=== PATIENT | male | born 1995 | race Caucasian/White ===

== ENCOUNTER 2023-08-18 17:35 | Emergency (ER) | payer SELFPAY ==
--- NOTE | 2023-08-18 17:57 | ER ---
Nurse's Notes [facility] Name: Joseph Bass Age: 28 yrs Sex: Male : 1995 Arrival Date: 08/18/2023 Time: 17:35 Bed 17 Private MD: Diagnosis: Pilonidal cyst with abscess Presentation: 08/17 17:52 Chief complaint: Patient states: Swelling/pain to buttocks for 2 weeks. No drainage or ll1 fever. Coronavirus screen: Client denies travel out of the [place] in the last 14 days. At this time, the client does not indicate any symptoms associated with coronavirus-19. Ebola Screen: Patient denies travel to an Ebola-affected area in the 21 days before illness onset. Initial Sepsis Screen: Does the patient meet any 2 criteria? No. Patient's initial sepsis screen is negative. Does the patient have a suspected source of infection? No. Patient's initial sepsis screen is negative. Risk Assessment: Do you want to hurt yourself or someone else? Patient reports no desire to harm self or others. Onset of symptoms was August 05, 2023. 17:52 Method Of Arrival: Ambulatory ll1 17:52 Acuity: CARLA 4 ll1 Triage Assessment: 17:53 General: Appears uncomfortable, Behavior is calm, cooperative, appropriate for age. ll1 Pain: Complains of pain in buttocks Quality of pain is described as aching, Pain began 2 weeks. Derm: Abscess located on buttocks is dime sized, has no drainage, is red, is raised. Historical: - Allergies: 17:51 No Known Allergies; ll1 - PMHx: 17:51 None; ll1 - PSHx: 17:51 None; ll1 - Immunization history:: Adult Immunizations up to date. - Infectious Disease History:: Denies. - Social history:: Smoking status: Patient reports the use of cigarette tobacco products, smokes one-half pack cigarettes per day, Reported history of juuling and/or vaping. Screenin:12 [facility] ED Fall Risk Assessment (Adult) History of falling in the last 3 months, me1 including since admission No falls in past 3 months (0 pts) Confusion or Disorientation No (0 pts) Intoxicated or Sedated No (0 pts) Impaired Gait No (0 pts) Mobility Assist Device Used No (0 pt) Altered Elimination No (0 pt) Score/Fall Risk Level 0 - 2 = Low Risk Maintained a safe environment, Provided non-skid footwear, Hourly rounding (assess needs \T\ fall precautionary measures) done. Abuse screen: Denies threats or abuse. Nutritional screening: No deficits noted. Tuberculosis screening: No symptoms or risk factors identified. Assessment: 18:00 General: Appears uncomfortable, well groomed, well developed, well nourished, Behavior me1 is calm, cooperative, appropriate for age, Reports. 19:12 General: Reports. Pain: Complains of pain in gluteal cleft and buttocks and coccyx Pain me1 does not radiate. Pain currently is 7 out of 10 on a pain scale. Quality of pain is described as sharp, throbbing, Pain began gradually, Is continuous. Neuro: Level of Consciousness is awake, alert, obeys commands, Oriented to person, place, time, situation, Appropriate for age. Cardiovascular: Patient's skin is warm and dry. Respiratory: Airway is patent Respiratory effort is even, unlabored, Respiratory pattern is regular, symmetrical. GI: No signs and/or symptoms were reported involving the gastrointestinal system. : No signs and/or symptoms were reported regarding the genitourinary system. EENT: No signs and/or symptoms were reported regarding the EENT system. Derm: Skin is healthy with good turgor, Skin is pink, warm \T\ dry. area of redness and swelling to gluteal cleft. Musculoskeletal: No signs and/or symptoms reported regarding the musculoskeletal system. Vital Signs: 17:52 BP 104 / 75; Pulse 100; Resp 17; Temp 97.3; Pulse Ox 97% on R/A; Weight 104.33 kg; ll1 Height 5 ft. 11 in. ; 18:00 BP 106 / 64; Pulse 98; Resp 16; Pulse Ox 98% ; me1 19:00 BP 90 / 68; Pulse 105; Resp 16; Pulse Ox 98% on R/A; me1 17:52 Body Mass Index 32.08 (104.33 kg, 180.34 cm) ll1 ED Course: 17:36 Patient arrived in ED. rg4 17:43 Tamela Rabago FNP-C [facility]. kb 17:43 Jose Ronquillo MD is Attending Physician. kb 17:46 Arm band placed on Patient placed in an exam room, on a stretcher. ll1 17:53 Triage completed. ll1 18:20 Inna Acevedo, RN is Primary Nurse. me1 19:12 Patient has correct armband on for positive identification. Bed in low position. Call me1 light in reach. Side rails up X2. Provided Education on: POC. Verbalized understanding. . Client placed on continuous cardiac and pulse oximetry monitoring. NIBP monitoring applied. Pulse ox on. NIBP on. 19:12 No provider procedures requiring assistance completed. me1 19:12 Patient did not have IV access during this emergency room visit. me1 Administered Medications: 18:28 Drug: Trimethoprim-Sulfamethoxazole PO (160 mg-800 mg (DS) 1 tablet PO once Route: PO; me1 19:17 Follow up: Response: No adverse reaction me1 18:28 Drug: Cephalexin PO 500 mg PO once Route: PO; me1 19:16 Follow up: Response: No adverse reaction me1 18:28 Drug: Hydrocodone-Acetaminophen PO (7.5 mg-325 mg) 1 tabs PO once Route: PO; me1 19:16 Follow up: Response: No adverse reaction; Pain is decreased me1 Medication: 19:12 VIS not applicable for this client. me1 Outcome: 17:56 Discharge ordered by MD. kb 19:16 Discharged to home ambulatory, with friend, me1 19:16 Condition: stable 19:16 Discharge instructions given to patient, friend, Instructed on discharge instructions, follow up and referral plans. medication usage, Demonstrated understanding of instructions, follow-up care, medications, Prescriptions given X 2, 19:16 Patient left the ED. me1 Signatures: Tamela Rabago, CARBIDE GRINDER-C CARBIDE GRINDER-Sharon Gibson rg4 Anne Rain, RN RN ll1 Inna Acevedo, RN RN me1
--- NOTE | 2023-08-18 17:57 | EDPHYS ---
Physician Documentation [facility] Name: Joseph Bass Age: 28 yrs Sex: Male : 1995 Arrival Date: 08/18/2023 Time: 17:35 Bed 17 Private MD: BLAKE Physician Jose Ronquillo HPI: 08/17 17:50 This 28 yrs old Male presents to ER via Unassigned with complaints of Rectal Abscess. kb 17:50 Pt is a 28 year old male with a history of pilonidal cyst that presents for recurrence kb of cyst. States it normally "flares up" once a year. Reports he started feeling pain about 2 weeks ago and it has gotten worse. . Historical: - Allergies: 17:51 No Known Allergies; ll1 - PMHx: 17:51 None; ll1 - PSHx: 17:51 None; ll1 - Immunization history:: Adult Immunizations up to date. - Infectious Disease History:: Denies. - Social history:: Smoking status: Patient reports the use of cigarette tobacco products, smokes one-half pack cigarettes per day, Reported history of juuling and/or vaping. ROS: 17:50 Constitutional: As per HPI kb Exam: 17:50 Constitutional: This is a well developed, well nourished patient who is awake, alert, kb and in no acute distress. Head/Face: Normocephalic, atraumatic. ENT: Moist Mucous membranes Cardiovascular: Regular rate Respiratory: Respirations even and unlabored. No increased work of breathing. Talking in full sentences MS/ Extremity: Pulses equal, no cyanosis. Neurovascular intact. Full, normal range of motion. Neuro: Awake and alert, GCS 15, oriented to person, place, time, and situation. Moves all extremities. Normal gait. 17:50 Skin: abscess, that is moderate sized, of the gluteal cleft, with induration, no fluctuance, slight erythema, Vital Signs: 17:52 BP 104 / 75; Pulse 100; Resp 17; Temp 97.3; Pulse Ox 97% on R/A; Weight 104.33 kg; ll1 Height 5 ft. 11 in. ; 18:00 BP 106 / 64; Pulse 98; Resp 16; Pulse Ox 98% ; me1 19:00 BP 90 / 68; Pulse 105; Resp 16; Pulse Ox 98% on R/A; me1 17:52 Body Mass Index 32.08 (104.33 kg, 180.34 cm) ll1 MDM: 17:43 Patient medically screened. kb 17:54 Differential diagnosis: abscess, pilonidal cyst. Data reviewed: vital signs, nurses kb notes. Historians other than the Patient: Spouse/Significant Other: significant other. Counseling: I had a detailed discussion with the patient and/or guardian regarding the historical points, exam findings, and any diagnostic results supporting the discharge/admit diagnosis, the need for outpatient follow up, a general surgeon, to return to the emergency department if symptoms worsen or persist or if there are any questions or concerns that arise at home. ED course: No fluctuance appreciated. Recommended outpatient antibiotics and to follow up with surgeon. Significant other states "I've seen it several times and didn't think it was ready to be drained.". Administered Medications: 18:28 Drug: Trimethoprim-Sulfamethoxazole PO (160 mg-800 mg (DS) 1 tablet PO once Route: PO; me1 19:17 Follow up: Response: No adverse reaction me1 18:28 Drug: Cephalexin PO 500 mg PO once Route: PO; me1 19:16 Follow up: Response: No adverse reaction me1 18:28 Drug: Hydrocodone-Acetaminophen PO (7.5 mg-325 mg) 1 tabs PO once Route: PO; me1 19:16 Follow up: Response: No adverse reaction; Pain is decreased me1 Disposition Summary: 08/18/23 17:56 Discharge Ordered Notes: Location: Home kb Condition: Stable kb Diagnosis - Pilonidal cyst with abscess kb Followup: kb - With: Emergency Department - When: As needed - Reason: Worsening of condition Followup: kb - With: Private Physician - When: 2 - 3 days - Reason: Recheck today's complaints, Continuance of care, Re-evaluation by your physician Discharge Instructions: - Pilonidal Cyst kb - Discharge Summary Sheet ll1 Forms: - Medication Reconciliation Form kb - Antibiotic Education kb - Prescription Opioid Use kb - Patient Portal Instructions kb - Leadership Thank You Letter kb - Work release form ll1 Prescriptions: - Cephalexin 500 mg Oral Capsule - take 1 capsule ORAL route every 8 hours for 10 days; 30 capsule; Refills: 0, kb Product Selection Permitted - Bactrim DS 800-160 mg Oral Tablet - take 1 tablet ORAL route every 12 hours for 10 days; 20 tablet; Refills: 0, kb Product Selection Permitted Signatures: Tamela Rabago, Anne Smith RN RN ll1 Inna Acevedo RN RN me1
[2023-08-18] MEDS ORDERED: HYDROCODONE/APAP 7.5/325 MG TAB ONE (18:23)
[2023-08-18] MEDS ORDERED: CEPHALEXIN 250 MG CAP ONE (18:23)
[2023-08-18] MEDS ORDERED: SMZ./TMP. 800/160 MG TABLET ONE (18:23)
[2023-08-18 19:38] VITALS: BP 90/68; TEMP 97.3; O2SAT 98
== END 2023-08-18 19:16 | disposition home or self-care (01) ==
LOC: ER 17:35
DX: L05.01 Pilonidal cyst with abscess (principal)
CPT/HCPCS: 99284

== ENCOUNTER 2023-08-19 12:12 | Emergency (ER) | payer SELFPAY ==
[2023-08-19] MEDS ORDERED: LIDOCAINE 1% 20 ML MDV ONE (13:22)
--- NOTE | 2023-08-19 13:52 | ER ---
Nurse's Notes [facility] Name: Joseph Bass Age: 28 yrs Sex: Male : 1995 Arrival Date: 08/19/2023 Time: 12:12 Bed 11 Private MD: Diagnosis: Pilonidal cyst with abscess Presentation: 08/18 13:18 Chief complaint: Patient states: Pilonidal cyst x " a few weeks", has had then in the ph past, reports fatigue, denies fever, N/V. Coronavirus screen: Vaccine status:. Ebola Screen: No symptoms or risks identified at this time. Initial Sepsis Screen: Does the patient meet any 2 criteria? No. Patient's initial sepsis screen is negative. Does the patient have a suspected source of infection? No. Patient's initial sepsis screen is negative. Risk Assessment: Do you want to hurt yourself or someone else? Patient reports no desire to harm self or others. Onset of symptoms was August 19, 2023. 13:18 Method Of Arrival: Ambulatory ph 13:18 Acuity: CARLA 4 ph Historical: - Allergies: 13:20 No Known Allergies; ph - PMHx: 13:20 None; ph - Immunization history:: Adult Immunizations unknown. - Infectious Disease History:: Denies. - Social history:: Smoking status: Patient reports the use of cigarette tobacco products, smokes one-half pack cigarettes per day, Reported history of juuling and/or vaping. Screenin:20 [facility] ED Fall Risk Assessment (Adult) History of falling in the last 3 months, ss including since admission No falls in past 3 months (0 pts) Confusion or Disorientation No (0 pts) Intoxicated or Sedated No (0 pts) Impaired Gait No (0 pts) Mobility Assist Device Used No (0 pt) Altered Elimination No (0 pt) Score/Fall Risk Level 0 - 2 = Low Risk Maintained a safe environment. Abuse screen: Denies threats or abuse. Denies injuries from another. Nutritional screening: No deficits noted. Tuberculosis screening: Never had TB. Assessment: 14:20 General: Appears in no apparent distress. comfortable, Behavior is calm, cooperative. ss Pain:. Neuro: Level of Consciousness is awake, alert, obeys commands, Oriented to person, place, time, situation. Respiratory: Respiratory effort is even, unlabored. Derm: Skin is pink, warm \\T\\ dry. normal, Reports pilonidal cyst that began "years ago" that comes and goes. Has never followed up with a general surgeon because he improves after ER visits. Vital Signs: 13:18 BP 126 / 62; Pulse 87; Resp 18; Temp 97.4; Pulse Ox 98% on R/A; Weight 104.33 kg; ph Height 5 ft. 11 in. ; 13:18 Body Mass Index 32.08 (104.33 kg, 180.34 cm) ED Course: 12:13 Patient arrived in ED. 4 12:32 Celeste Hein [facility]NP [facility] 12:32 Lauro Marie MD is Attending Physician. [facility] center clinic 13:18 Liza Mcmillan, RN is Primary Nurse. 13:20 Triage completed. 13:20 Arm band placed on Patient placed in an exam room. 13:51 Caesar Schneider MD is Referral Physician. medical center clinic 14:20 Patient has correct armband on for positive identification. Bed in low position. 14:20 No provider procedures requiring assistance completed. Patient did not have IV access ss during this emergency room visit. Administered Medications: 13:50 Not Given (Physician Discretion): lidocaine(1 %) 20 ml 20 ml Infiltration once; to [facility] bedside 14:20 Drug: HYDROcodone-acetaminophen PO 5 mg-325 mg 1 tabs PO once Route: PO; 14:20 Follow up: Response: Medication administered at discharge. 14:20 Drug: Ketorolac IM 30 mg IM once Route: IM; Site: right deltoid; 14:20 Follow up: Response: Medication administered at discharge. Medication: 14:20 VIS not applicable for this client. Outcome: 13:51 Discharge ordered by . [facility] 14:20 Discharged to home ambulatory, with significant other, 14:20 Condition: good 14:20 Discharge instructions given to patient, significant other, Instructed on discharge instructions, follow up and referral plans. Demonstrated understanding of instructions, follow-up care, Prescriptions given X 1, 14:23 Patient left the ED. Signatures: Ale Braden RN RN Liza Mcmillan RN RN Sharon Brandt 4 Celeste Hein FNP [place] [id number]
--- NOTE | 2023-08-19 13:52 | EDPHYS ---
Physician Documentation [facility] Name: Joseph Bass Age: 28 yrs Sex: Male : 1995 Arrival Date: 08/19/2023 Time: 12:12 Bed 11 Private MD: ED Physician Lauro Marie HPI: 08/18 13:20 This 28 yrs old Male presents to ER via Ambulatory with complaints of Pilonidal Cyst. [facility] 13:20 28-year-old male presents to the ER for pilonidal cyst. He reports that he was seen [facility] yesterday and given antibiotics, but thinks that it may be ready to drain today. Denies fever, redness, or any new symptoms.. Historical: - Allergies: 13:20 No Known Allergies; ph - PMHx: 13:20 None; ph - Immunization history:: Adult Immunizations unknown. - Infectious Disease History:: Denies. - Social history:: Smoking status: Patient reports the use of cigarette tobacco products, smokes one-half pack cigarettes per day, Reported history of juuling and/or vaping. ROS: 13:20 Constitutional: Per HPI 7 Exam: 13:20 Constitutional: This is a well developed, well nourished patient who is awake, alert, jh7 and in no acute distress. Head/Face: Normocephalic, atraumatic. Neck: Trachea midline, no thyromegaly or masses palpated, and no cervical lymphadenopathy. Supple, full range of motion without nuchal rigidity, or vertebral point tenderness. No Meningismus. Cardiovascular: Regular rate and rhythm with a normal S1 and S2. No gallops, murmurs, or rubs. Normal PMI, no JVD. No pulse deficits. Respiratory: Lungs have equal breath sounds bilaterally, clear to auscultation and percussion. No rales, rhonchi or wheezes noted. No increased work of breathing, no retractions or nasal flaring. Abdomen/GI: Soft, non-tender, with normal bowel sounds. No distension or tympany. No guarding or rebound. No evidence of tenderness throughout. MS/ Extremity: Pulses equal, no cyanosis. Neurovascular intact. Full, normal range of motion. Neuro: Awake and alert, GCS 15, oriented to person, place, time, and situation. Motor strength 5/5 in all extremities. Sensory grossly intact. Normal gait. 13:20 Skin: abscess, with induration, Abscess present on the gluteal cleft with induration but no localized fluid collection/fluctuance present. No erythema/surrounding cellulitis. Area is tender to palpation., Vital Signs: 13:18 BP 126 / 62; Pulse 87; Resp 18; Temp 97.4; Pulse Ox 98% on R/A; Weight 104.33 kg; ph Height 5 ft. 11 in. ; 13:18 Body Mass Index 32.08 (104.33 kg, 180.34 cm) ph MDM: 12:32 Patient medically screened. [facility] 14:22 Differential diagnosis: abscess, pilonidal cyst. Data reviewed: vital signs, nurses [facility] notes. I considered the following discharge prescriptions or medication management in the emergency department Medications were administered in the Emergency Department. See MAR. Historians other than the Patient: Spouse/Significant Other: . Counseling: I had a detailed discussion with the patient and/or guardian regarding the historical points, exam findings, and any diagnostic results supporting the discharge/admit diagnosis, the need for outpatient follow up, a general surgeon, to return to the emergency department if symptoms worsen or persist or if there are any questions or concerns that arise at home. Special discussion: Utilized an ultrasound to show patient that there is no localized fluid collection seen. Advise follow-up with Dr. Schneider. Patient understood plan of care.. 08/18 12:54 Order name: I\T\D Setup; Complete Time: 13:22 [facility] Administered Medications: 13:50 Not Given (Physician Discretion): lidocaine(1 %) 20 ml 20 ml Infiltration once; to [facility] bedside 14:20 Drug: HYDROcodone-acetaminophen PO 5 mg-325 mg 1 tabs PO once Route: PO; 14:20 Follow up: Response: Medication administered at discharge. 14:20 Drug: Ketorolac IM 30 mg IM once Route: IM; Site: right deltoid; 14:20 Follow up: Response: Medication administered at discharge. Disposition Summary: 08/19/23 13:51 Discharge Ordered Notes: Location: Home [facility] Problem: an ongoing problem [facility] Symptoms: are unchanged [facility] Condition: Stable [facility] Diagnosis - Pilonidal cyst with abscess [facility] Followup: [facility] - With: Caesar Schneider MD - When: 2 - 3 days - Reason: Recheck today's complaints Discharge Instructions: - Discharge Summary Sheet [facility] - Pilonidal Cyst [facility] - Pilonidal Cyst Drainage [facility] Forms: - Medication Reconciliation Form [facility] - Antibiotic Education [facility] - Prescription Opioid Use [facility] - Patient Portal Instructions [facility] - Leadership Thank You Letter [facility] Prescriptions: - acetaminophen-codeine 300-15 mg Oral tablet - take 1 tablet ORAL route every 4 to 6 hours As needed as needed for pain; 30 jh7 tablet; Refills: 0, Product Selection Permitted Addendum: 08/22/2023 14:11 I was immediately available for consultation during this patient's visit. I did not e c2 personally see the patient or discuss the patient with the VICKI. . Signatures: Ale Braden RN RN Liza Boothe RN RN Celeste Hein, BUS BOY BUS BOY [facility] Lauro Marie MD MD ec2 Corrections: (The following items were deleted from the chart) 08/18 13:51 13:51 Pilonidal cyst without abscess [place] [id number]
[2023-08-19] MEDS ORDERED: KETOROLAC 30 MG/ML INJ ONE (14:13)
[2023-08-19] MEDS ORDERED: HYDROCODONE/APAP 5/325 MG TAB ONE (14:13)
[2023-08-19 14:48] VITALS: BP 126/62; TEMP 97.4; O2SAT 98
== END 2023-08-19 14:23 | disposition home or self-care (01) ==
LOC: ER 12:12
PROC: 0H98XZZ Drainage of Buttock Skin, External Approach (ICD-10-PCS; principal; 2023-08-19)
DX: L05.01 Pilonidal cyst with abscess (principal)
CPT/HCPCS: 96372; 99284; J2001

== ENCOUNTER 2023-08-21 07:38 | Emergency (ER) | payer SELFPAY ==
--- OUTSIDE RECORDS SUMMARY | 2023-08-21 07:41 | XMS REPORT | Continuity of Care Document ---
Author Name Unknown Address [address] [facility] [address] [place] [address] [facility] Address [address] [facility] [address] [place] [address] Care Team Providers Care Retanner Name Role Phone ISADORA JANICE Attending Clinician Unavailable JOSELITO Attending Clinician Unavailable MARIAELENA, DR LYONS Attending Clinician Unavailable SUKHDEV, DR REN Baez Attending Clinician Freddy PEREZ, DR COATES Attending Clinician Unavailable GÓMEZ, DR ROBLES Attending Clinician Unavailable SHERITA, DR VERITO Moyer Attending Clinician Martin HURT, DR CHRISTEL Eid Attending Clinician MELVIN Ambrocio Attending Clinician [phone] [facility], PROVIDER Attending Clinician Martin SHERIDAN, DR KAHLIL Albarran Attending Clinician Freddy YEE Admitting Clinician Mily FERRELL, DR LYONS Admitting Clinician Mily SANTIZO, DR REN Baez Admitting Clinician Unavaildeya PEREZ, DR COATES Admitting Clinician Unavailable GÓMEZ, DR ROBLES Admitting Clinician Unavailable SHERITA, DR VERITO Moyer Admitting Clinician Martin HURT, DR CHRISTEL Eid Admitting Clinician Aris SHERIDAN, DR KAHLIL Albarran Admitting Clinician Unavaildeya e Payers Payer Name Policy Type Policy Number Effective Date Expirati on Date Source Allergies, Adverse Reactions, Alerts Allergy Name Allergy Type Status Severity Reaction(s) Onset Date Inactive Date Treating Clinician Comments Source No known allergy Miscella neous allergy Active 07-17 00:00: 00 [facility] NKDA DA Active Unknown 07-31 00:00: 00 [facility] Social History Social Habit Start Date Stop Date Quantity Comments Source Sex Assigned At Male [facility] Smoking Status Start Date Stop Date Source Unknown if ever smoked [facility] Vital Signs Vital Name Observation Time Observation Value Comments S ource Height 2019-12-21 15:15:00 180.34 CM Weight 2019-12-21 15:15:00 104.32 KG Height 2019-12-15 11:46:00 180.34 CM Weight 2019-12-15 11:46:00 104.32 KG Height 2019-04-04 15:20:00 180.34 CM Weight 2019-04-04 15:20:00 99.79 KG Height 2019-04-02 19:55:00 180.34 CM Weight 2019-04-02 19:55:00 99.79 KG Procedures Procedure Date / Time Performed Performing Clinicia n Source DRAINAGE BUTTOCK SKIN EXTERNAL 2019-12-21 00:00:00 [facility] DRAINAGE BUTTOCK SKIN EXTERNAL 2019-04-02 00:00:00 [facility] Encounters Start Date/Time End Date/Time Encounter Type Admission Type Attending [facility] Facility Care Department Encounter ID Source 2023-06-12 11:09:00 2023-06-12 11:09:00 Outpatient SELF/OTHER INDIVIDUAL JANICE [facility] [id number] [facility] 2021-09-14 02:52:00 2021-09-14 02:52:00 Outpatient AMBREEN_ROSA MAJANOA [facility] [id number] 2019-12-21 15:04:00 2019-12-21 16:35:00 Outpatient E SERENA FERRELL [facility] [id number] [facility] 2019-12-15 11:38:00 2019-12-15 12:24:00 Outpatient E REN SANTIZO [facility] [id number] [facility] 2019-04-04 15:15:00 2019-04-04 16:00:00 Outpatient E JAXON PEREZ [facility] [id number] [facility] 2018-12-12 12:44:00 2018-12-13 09:35:00 Outpatient E SERENA FERRELL [facility] [id number] [facility] 2018-10-19 16:26:00 2018-10-19 17:25:00 Emergency E TRAVIS MAGAÑA [facility] [id number] [facility] 2018-05-28 00:00:00 2018-05-28 01:40:00 Outpatient E VERITO MAGALLON [facility] [id number] [facility] 2018-02-01 16:41:00 2018-02-01 17:35:00 Outpatient E CHRISTEL HURT [facility] [id number] [facility] 2017-09-18 00:00:00 2017-09-18 00:00:00 Outpatient MAGAÑAMELVIN Baez [facility] [id number] [facility] 2017-06-21 00:00:00 2017-06-21 00:00:00 Outpatient MELVIN MAGAÑA [facility] [id number] [facility] 2017-06-16 00:00:00 2017-06-16 00:00:00 Outpatient [facility] [id number] [facility] 2017-06-16 00:00:00 2017-06-16 00:00:00 Outpatient ACCESSHEALT H, PROVIDER [facility] [id number] [facility] 2017-06-16 00:00:00 2017-06-16 00:00:00 Outpatient MAGAÑAMELVIN Baez [facility] [id number] [facility] 2016-07-31 20:48:00 2016-07-31 21:37:00 Emergency E SHERIDANKAHLIL THOMAS [facility] [id number] [facility] Results Test Description Test Time Test Comments Results Result Co mments Source WOUND/SKIN/ABS.&GRAMSTAIN [id number] 10:49:00* Test Item Value Reference Range Interpretation Comme nts Culture Observations (test code = COB1) NORMAL SKIN GLENDY Direct Exam (test code = DE1) FEW WHITE BLOOD CELLS SEEN Direct Exam (test code = DE2) FEW GRAM POSITIVE COCCI [id number] 04:30:00* Test Item Value Reference Range Interpretation Comme nts CPK (test code = 32A) 279 IU/L 39-308 TROPONIN I OW2018-12-13 00:31:00* Test Item Value Reference Range Interpretation Comme nts TROPONIN I (test code = A84) 0.000 ng/mL 0.000-0.045 [id number] 15:57:00* Test Item Value Reference Range Interpretation Comme nts CPK (test code = 32A) 434 IU/L 39-308 H LIVER [id number] 15:57:00* Test Item Value Reference Range Interpretation Comme nts BILI TOTAL (test code = 11A) 0.6 mg/dL 0.2-1.0 BILI DIRCT (test code = 12A) <0.1 mg/dL 0.0-0.2 PROTEIN (test code = 07D) 8.4 g/dL 6.4-8.2 H ALBUMIN (test code = 08D) 4.1 g/dL 3.5-4.8 GLOBULIN (test code = GLB) 4.3 g/dL 1.5-3.8 H ALB/GLOB (test code = AGRR) 1.0 1.0-2.6 ALK PHOS (test code = 35A) 85 IU/L 42-121 AST (test code = 30A) 21 IU/L <=42 ALT (test code = 31A) 29 IU/L <=78 [id number] 15:57:00* Test Item Value Reference Range Interpretation Comme nts ACETAMINPH (test code = 94M) <2.0 ug/mL 10.0-30.0 L ALCOHOL BLOOD (ETOH)2018-12-12 15:56:00* Test Item Value Reference Range Interpretation Comme nts ETOH (test code = HALC) ETHANOL * The result is to be used only for medical purposes ALCOHOL (test code = 56A) <10 mg/dL <=10 [id number] 15:50:00* Test Item Value Reference Range Interpretation Comme nts SALICYLATE (test code = 94B) 4.2 mg/dL 2.8-20.0 DRUGS OF ABUSE*OW*2018-12-12 14:03:00* Test Item Value Reference Range Interpretation Comme nts DRUG SCRN (test code = HDOA) URINE DRUG SCREEN This is an unconfirmed screening result and should not be used for non-medical purposes PHENCYCLID (test code = GPCP) Negative NEGATIVE BENZODIAZE (test code = GBZO) Positive NEGATIVE A COCAINE (test code = GCOC) Positive NEGATIVE A AMPHETAMIN (test code = GAMP) Positive NEGATIVE A THC (test code = GTHC) Positive NEGATIVE A OPIATES (test code = FRANKY) Negative NEGATIVE BARBITURAT (test code = GBAR) Negative NEGATIVE TCA (test code = GTCA) Negative NEGATIVE DOAH (test code = DOAH) URINE DRUG SCREEN CUT OFF VALUES Amphetamines 1000 ng/mL Barbituates 300 ng/mL Benzodiazepines 300 ng/mL Cocaine 300 ng/mL Opiates 300 ng/mL Phencyclidine 25 ng/mL THC 50 ng/mL Tricyclic Antidepressants 1000 ng/mL URINALYSIS W/O MICROSCOPICOW2018-12-12 13:48:00* Test Item Value Reference Range Interpretation Comme nts COLOR (test code = COLU) DK YELLOW YELLOW A CLARITY (test code = CLA) SLT HAZY CLEAR A GLUCOSE UR (test code = UA GLUCOSE) Negative NEGATIVE BILI UR (test code = BILE) 1+ NEGATIVE A KETONES UR (test code = JAVIER) 1+ NEGATIVE A SP GRAVITY (test code = SPGR) 1.025 1.005-1.030 PH UR (test code = PH) 6.0 4.5-8.0 PROTEIN UR (test code = PU) 1+ NEGATIVE A NITRITE UR (test code = NITRITE) Negative NEGATIVE UROBIL UR (test code = GUROQ) 0.2 E.U./dL UROBIL UR (test code = GUROQC) UROBILINOGEN REFERENCE RANGE 0.2 - 1.0 EU/dL BLOOD UR (test code = UA BLOOD) Negative NEGATIVE LEUK ES UR (test code = LEUK) Negative NEGATIVE CHEM8+ i-STAT OW2018-12-12 13:20:00* Test Item Value Reference Range Interpretation Comme nts SODIUM (test code = CRISTINA) 139 mmol/L 138-146 POTASSIUM (test code = KI) 4.6 mmol/L 3.5-4.9 CHLORIDE (test code = CLI) 107 mmol/L 98-109 CA IONIZED (test code = ICAI) 1.16 mmol/L 1.12-1.32 GLUCOSE (test code = GLUI) 142 mg/dL 75-100 H TCO2 (test code = TCO2) 24 mmol/L 24-29 BUN (test code = BUN1) 15 mg/dL 8-26 CREATININE (test code = CREAI) 1.0 mg/dL 0.6-1.3 ANION GAP (test code = GANG) 14.0 mmol/L HGB (test code = MHB) 16.7 g/dL 12.0-17.0 HCT (test code = MHCT) 49.0 % 38.0-51.0 CBC (INCLUDES AUTOMATED DIFFERENTIAL) *2018-12-12 13:16:00* Test Item Value Reference Range Interpretation Comme nts WBC (test code = WBC) 11.7 10\S\3/uL 4.5-11.0 H RBC (test code = RBC) 5.80 10\S\6/uL 4.30-5.70 H HGB (test code = HBG) 16.8 g/dL 14.0-18.0 HCT (test code = HCT) 51.3 % 35.0-46.0 H MCV (test code = MCV) 88.5 fL 80.0-94.0 MCH (test code = MCH) 29.0 pg 27.0-31.0 MCHC (test code = MCHC) 32.7 g/dL 32.0-36.0 RDW (test code = RDW) 14.3 % 11.5-14.5 PLT (test code = PLT) 338 10\S\3/uL 130-400 MPV (test code = OMPV) 8.9 fL 6.2-10.2 NEUTROP # (test code = NE#) 7.7 10\S\3/uL 2.0-8.0 LYMPH # (test code = LY#) 3.1 10\S\3/uL 1.2-4.0 MID # (test code = GMID#) 0.9 10\S\3/uL 0.0-1.1 GRA % (test code = GRA%) 65.9 % 35.0-73.0 LYMPH % (test code = GLY%) 26.5 % 20.0-55.0 MID % (test code = GMID%) 7.6 % 0.0-10.0 [id number] 17:54:00* Test Item Value Reference Range Interpretation Comme nts ACETAMINPH (test code = 94M) <2.0 ug/mL 10.0-30.0 L CARDIAC [id number] 17:47:00* Test Item Value Reference Range Interpretation Comme nts TROPONIN I (test code = A84) <0.015 ng/mL 0.000-0.045 COMPREHENSIVE METABOLIC [id number] 17:47:00* Test Item Value Reference Range Interpretation Comme nts GLUCOSE (test code = 06D) 89 mg/dL 75-100 SODIUM (test code = 01A) 144 mmol/L 136-145 POTASSIUM (test code = 01B) 4.2 mmol/L 3.6-5.1 CHLORIDE (test code = 04A) 111 mmol/L 98-107 H CO2 (test code = 02A) 26 mmol/L 22-32 ANION GAP (test code = ANG) 11.2 mmol/L BUN (test code = 05D) 13 mg/dL 7-18 CREATININE (test code = 03E) 1.0 mg/dL 0.7-1.3 BUN/CREA (test code = BCR) 14 12-20 CALCIUM (test code = 09D) 8.5 mg/dL 8.3-9.5 BILI TOTAL (test code = 11A) 0.2 mg/dL 0.2-1.0 PROTEIN (test code = 07D) 7.3 g/dL 6.4-8.2 ALBUMIN (test code = 08D) 4.0 g/dL 3.5-4.8 GLOBULIN (test code = GLB) 3.3 g/dL 1.5-3.8 ALB/GLOB (test code = AGRR) 1.2 1.0-2.6 ALK PHOS (test code = 35A) 74 IU/L 42-121 AST (test code = 30A) 19 IU/L <=42 ALT (test code = 31A) 31 IU/L <=78 ALCOHOL BLOOD (ETOH)2018-10-19 17:45:00* Test Item Value Reference Range Interpretation Comme nts ETOH (test code = HALC) ETHANOL * The result is to be used only for medical purposes ALCOHOL (test code = 56A) <10 mg/dL <=10 PRO TIME AND [id number] 17:44:00* Test Item Value Reference Range Interpretation Comme nts PT (test code = TT) 11.2 s 9.8-13.6 INR (test code = INR) 1.0 INRH (test code = INRH) SUGGESTED THERAPEUTIC RANGE FOR INR: 2.5 - 3.5 For Patients with Prosthetic Valves or Patients with recurrent Thromboembolic Events 2.0 - 3.0 For Most Other Applications PTT (test code = PTT) 29.0 s 20.2-38.0 PTTH (test code = PTTH) To monitor the effectiveness of heparin, we offer the Anti-Xa (Heparin Assay). It can be used for either unfractionated or LMW Heparin. Order Code is ANTI-XA AMYLASE AND [id number] 17:43:00* Test Item Value Reference Range Interpretation Comme nts AMYLASE (test code = 10A) 60 U/L 28-100 LIPASE (test code = 60A) 95 IU/L 73-393 DRUGS OF [id number] 17:40:00* Test Item Value Reference Range Interpretation Comme nts DRUG SCRN (test code = HDOA) URINE DRUG SCREEN This is an unconfirmed screening result and should not be used for non-medical purposes CANNABINOD (test code = 88C) POSITIVE NEGATIVE A AMPHETAMINE (test code = 84A) Negative NEGATIVE BENZODIAZP (test code = 86A) POSITIVE NEGATIVE A BARBITURAT (test code = 85A) Negative NEGATIVE OPIATES (test code = 92B) Negative NEGATIVE COCAINE (test code = 87A) POSITIVE NEGATIVE A PHENCYCLID (test code = 66A) Negative NEGATIVE METHADONE (test code = 64A) Negative NEGATIVE DOAH (test code = DOAH.) URINE DRUG SCREEN Cut-off values are as follows: Cannabinoids 50 ng/mL Cocaine 300 ng/mL Amphetamines 1000 ng/mL Phencyclidine 25 ng/mL Benzodiazepines 200 ng.mL Methadone 300 ng/mL Barbiturates 200 ng/mL Opiates 2000 ng/mL [id number] 17:30:00* Test Item Value Reference Range Interpretation Comme nts COLOR (test code = COLU) YELLOW YELLOW CLARITY (test code = CLA) CLEAR CLEAR GLUCOSE UR (test code = UA GLUCOSE) NEGATIVE NEGATIVE BILI UR (test code = BILE) NEGATIVE NEGATIVE KETONES UR (test code = JAVIER) NEGATIVE NEGATIVE SP GRAVITY (test code = SPGR) 1.026 1.005-1.030 PH UR (test code = PH) 6.0 4.5-8.0 PROTEIN UR (test code = PU) NEGATIVE NEGATIVE UROBIL UR (test code = UROQ) 1.0 EU/dL 0.2-1.0 NITRITE UR (test code = NITRITE) NEGATIVE NEGATIVE BLOOD UR (test code = UA BLOOD) NEGATIVE NEGATIVE LEUK ES UR (test code = LEUK) NEGATIVE NEGATIVE AUAM (test code = AUAM) NO NO CBC (INCLUDES AUTOMATED DIFFERENTIAL)2018-10-19 17:26:00* Test Item Value Reference Range Interpretation Comme nts WBC (test code = WBC) 14.2 10\S\3/uL 4.5-11.0 H RBC (test code = RBC) 5.13 10\S\6/uL 4.30-5.70 HGB (test code = HBG) 14.7 g/dL 14.0-18.0 HCT (test code = HCT) 42.7 % 35.0-46.0 MCV (test code = MCV) 83.2 fL 80.0-94.0 MCH (test code = MCH) 28.7 pg 27.0-31.0 MCHC (test code = MCHC) 34.4 g/dL 32.0-36.0 RDW (test code = RDW) 12.7 % 11.5-14.5 PLT (test code = PLT) 351 10\S\3/uL 130-400 MPV (test code = MPV) 10.6 fL 9.4-12.4 NEUTROP # (test code = NE#) 10.6 10\S\3/uL 2.0-8.0 H LYMPH # (test code = LY#) 2.6 10\S\3/uL 1.2-4.0 MONOCYTE # (test code = MO#) 0.8 10\S\3/uL 0.0-1.1 EOSINOPH # (test code = EO#) 0.1 10\S\3/uL 0.0-0.7 BASOPHIL # (test code = BA#) 0.1 10\S\3/uL 0.0-0.3 IG # (test code = IG#) 0.08 10\S\3/uL 0.00-0.06 H NRBC # (test code = NRBC#) 0.00 10\S\3/uL 0.00-0.01 NEUTROPH % (test code = NE%) 74.4 % 35.0-73.0 H LYMPH % (test code = LY%) 18.1 % 20.0-55.0 L MONO % (test code = MO%) 5.6 % 2.5-10.0 EOSINOPH % (test code = EO%) 0.9 % 0.0-5.0 BASOPHIL % (test code = BA%) 0.4 % 0.0-2.0 IG % (test code = IG%) 0.6 % 0.0-0.8 NRBC% (test code = NRBC%) 0.0 % 0.0-0.2 MANDIFF (test code = MDIFF) NO NO RBC MORPH (test code = RBCMOR) NORMAL XR ABDOMEN 2 VIEWS W/PA [id number] 17:00:31Examination: Abdominal series with chestLocation code: [id number]: Chest 05/28/18Discussion:Clinical history is remarkable for pain. Cardiac silhouette is normal in size.Very minimal right base atelectasis is present. There is no consolidation,effusion, or pneumothorax.No ileus, obstruction, or impaction is identified. There are no calcificationsoverlying the urinary tract.Impression:1. No acute abnormality. DRUGS OF ABUSE*OW*2018-05-28 01:18:00* Test Item Value Reference Range Interpretation Comme nts DRUG SCRN (test code = HDOA) URINE DRUG SCREEN This is an unconfirmed screening result and should not be used for non-medical purposes PHENCYCLID (test code = GPCP) Negative NEGATIVE BENZODIAZE (test code = GBZO) Negative NEGATIVE COCAINE (test code = GCOC) Negative NEGATIVE AMPHETAMIN (test code = GAMP) Positive NEGATIVE A THC (test code = GTHC) Positive NEGATIVE A OPIATES (test code = FRANKY) Negative NEGATIVE BARBITURAT (test code = GBAR) Negative NEGATIVE TCA (test code = GTCA) Negative NEGATIVE DOAH (test code = DOAH) URINE DRUG SCREEN CUT OFF VALUES Amphetamines 1000 ng/mL Barbituates 300 ng/mL Benzodiazepines 300 ng/mL Cocaine 300 ng/mL Opiates 300 ng/mL Phencyclidine 25 ng/mL THC 50 ng/mL Tricyclic Antidepressants 1000 ng/mL XR CHEST 1 VIEW PORTABLE *OW*2018-05-28 00:35:34Exam: Chest portable erectLocation: [id number]: [id number]: PalpitationsComparison: NoneFindings:The cynthia ngs are clear. No infiltrate or effusion is seen. The pulmonaryvasculature is normal. The heart size is normal. The mediastinal silhouette isunremarkable. The bony thorax is intact.Impression:No acute disease.CHEM8+ i-STAT OW2018-05-28 00:29:00* Test Item Value Reference Range Interpretation Comme nts SODIUM (test code = CRISTINA) 142 mmol/L 138-146 POTASSIUM (test code = KI) 3.2 mmol/L 3.5-4.9 L CHLORIDE (test code = CLI) 103 mmol/L 98-109 CA IONIZED (test code = ICAI) 1.13 mmol/L 1.12-1.32 GLUCOSE (test code = GLUI) 113 mg/dL 75-100 H TCO2 (test code = TCO2) 25 mmol/L 24-29 BUN (test code = BUN1) 15 mg/dL 8-26 CREATININE (test code = CREAI) 1.0 mg/dL 0.6-1.3 ANION GAP (test code = GANG) 18.0 mmol/L HGB (test code = MHB) 16.3 g/dL 12.0-17.0 HCT (test code = MHCT) 48.0 % 38.0-51.0 TROPONIN I i-STAT OW2018-05-28 00:26:00* Test Item Value Reference Range Interpretation Comme nts TROPONIN I (test code = A84) 0.000 ng/mL 0.000-0.045 CBC (INCLUDES AUTOMATED DIFFERENTIAL) *2018-05-28 00:17:00* Test Item Value Reference Range Interpretation Comme nts WBC (test code = WBC) 11.9 10\S\3/uL 4.5-11.0 H RBC (test code = RBC) 5.43 10\S\6/uL 4.30-5.70 HGB (test code = HBG) 16.6 g/dL 14.0-18.0 HCT (test code = HCT) 46.2 % 35.0-46.0 H MCV (test code = MCV) 85.0 fL 80.0-94.0 MCH (test code = MCH) 30.6 pg 27.0-31.0 MCHC (test code = MCHC) 35.9 g/dL 32.0-36.0 RDW (test code = RDW) 12.8 % 11.5-14.5 PLT (test code = PLT) 360 10\S\3/uL 130-400 MPV (test code = OMPV) 7.9 fL 6.2-10.2 NEUTROP # (test code = NE#) 8.3 10\S\3/uL 2.0-8.0 H LYMPH # (test code = LY#) 2.7 10\S\3/uL 1.2-4.0 MID # (test code = GMID#) 0.9 10\S\3/uL 0.0-1.1 GRA % (test code = GRA%) 69.7 % 35.0-73.0 LYMPH % (test code = GLY%) 22.7 % 20.0-55.0 MID % (test code = GMID%) 7.6 % 0.0-10.0
[2023-08-21] MEDS ORDERED: LIDOCAINE 1% 20 ML MDV ONE (08:03)
--- NOTE | 2023-08-21 08:47 | EDPHYS ---
Physician Documentation [facility] Name: Joseph Bass Age: 28 yrs Sex: Male : 1995 Arrival Date: 08/21/2023 Time: 07:38 Bed 13 Private MD: ED Physician Stephon Hightower HPI: 08/20 08:02 This 28 yrs old Male presents to ER via Ambulatory with complaints of Cyst. rn 08:02 the patient presents with a swollen area of the buttocks. Onset: The symptoms/episode rn began/occurred 1 week(s) ago. Possible cause(s): unknown. Modifying factors: the symptoms are alleviated by nothing, the symptoms are aggravated by squeezing the lesion and expressing the contents, touching. Severity of symptoms: At their worst the symptoms were moderate, in the emergency department the symptoms are unchanged. The patient has experienced similar episodes in the past. Patient reports things has infected pilonidal cyst. Has had it multiple times before. Has been seen a couple of times here this week and told was not ready to cut. Placed on antibiotics. Reports getting worse and more painful. Has never followed up with surgeon for definitive care.. Historical: - Allergies: 07:48 No Known Allergies; ll1 - PMHx: 07:48 None; ll1 - PSHx: 07:48 parada to arms debrided; ll1 - Immunization history:: Adult Immunizations up to date. - Infectious Disease History:: Denies. - Social history:: Smoking status: Patient reports the use of cigarette tobacco products, smokes one-half pack cigarettes per day, Reported history of juuling and/or vaping. - Family history:: not pertinent. - Hospitalizations: : No recent hospitalization is reported. ROS: 08:02 Constitutional: Negative for fever, chills, and weight loss, Cardiovascular: Negative rn for chest pain, palpitations, and edema, Respiratory: Negative for shortness of breath, cough, wheezing, and pleuritic chest pain, Abdomen/GI: Negative for abdominal pain, nausea, vomiting, diarrhea, and constipation, Back: Positive for swollen area above the gluteal cleft MS/Extremity: Negative for injury and deformity, Neuro: Negative for headache, weakness, numbness, tingling, and seizure, Exam: 08:02 Constitutional: This is a well developed, well nourished patient who is awake, alert, rn and in no acute distress. Cardiovascular: Regular rate and rhythm. No pulse deficits. Skin: Warm, dry, 3 cm area above gluteal cleft with fluctuance and erythema with tenderness consistent with pilonidal cyst with abscess. Vital Signs: 07:49 BP 120 / 62; Pulse 99; Resp 17; Temp 99.2; Pulse Ox 99% on R/A; Weight 104.33 kg; ll1 Height 5 ft. 11 in. ; Pain 8/10; 09:16 BP 117 / 68; Pulse 87; Resp 18; Temp 99; Pulse Ox 99% on R/A; ph 07:49 Body Mass Index 32.08 (104.33 kg, 180.34 cm) ll1 07:49 Pain Scale: Adult ll1 Procedures: 08:45 I \T\ D: Incision and drainage was performed for an abscess of the pilonidal cyst Prepped rn with Betadine, Anesthetized with 5 ml's 1% Lidocaine. Incised with #11 blade. Drained moderate amount purulent fluid. Loculations removed. Abscess cavity explored. Packed with iodoform gauze, Dressing: sterile 4x4 gauze, non-Adherent dressing, the patient tolerated the procedure well. MDM: 07:45 Patient medically screened. rn 08:45 Differential diagnosis: abscess, cellulitis. Data reviewed: vital signs, nurses notes, rn and as a result, I will discharge patient. Counseling: I had a detailed discussion with the patient and/or guardian regarding the historical points, exam findings, and any diagnostic results supporting the discharge/admit diagnosis, the need for outpatient follow up, to return to the emergency department if symptoms worsen or persist or if there are any questions or concerns that arise at home. Special discussion: I discussed with the patient/guardian in detail that at this point there is no indication for admission to the hospital. It is understood, however, that if the symptoms persist or worsen the patient needs to return immediately for re-evaluation. Based on the history and exam findings, there is no indication for further emergent testing or inpatient evaluation. I discussed with the patient/guardian the need to see the general surgeon for further evaluation of the symptoms. 08/20 07:51 Order name: Incision \T\ Drainage Setup; Complete Time: 08:05 rn Administered Medications: 08:30 Drug: Lidocaine Infiltration (1 %) 1 vials 20 ml Infiltration once; to bedside Volume: ph 20 ml; Route: Infiltration; 09:15 Follow up: Response: No adverse reaction ph 09:15 Drug: Walker PO 10 mg-325 mg 1 tabs PO once Route: PO; ph 09:15 Follow up: Response: No adverse reaction ph Disposition Summary: 08/21/23 08:46 Discharge Ordered Notes: Location: Home rn Problem: new rn Symptoms: have improved rn Condition: Stable rn Diagnosis - Pilonidal cyst with abscess rn Followup: rn - With: Keegan Baxter MD - When: As needed - Reason: Recheck today's complaints, Re-evaluation by your physician Discharge Instructions: - Discharge Summary Sheet rn - Incision and Drainage rn - Pilonidal Cyst rn - Wound Packing rn Forms: - Medication Reconciliation Form rn - Antibiotic yarn examiner - Prescription Opioid Use rn - Patient Portal Instructions rn - Leadership Thank You Letter rn Signatures: Stephon Hightower MD MD rn Hall, Patricia, RN RN ph Lewis, Lynsay RN RN [facility]
--- NOTE | 2023-08-21 08:47 | ER ---
Nurse's Notes [facility] Name: Joseph Bass Age: 28 yrs Sex: Male : 1995 Arrival Date: 08/21/2023 Time: 07:38 Bed 13 Private MD: Diagnosis: Pilonidal cyst with abscess Presentation: 08/20 07:49 Chief complaint: Patient states: Here to have abscess drained to buttocks area. Painful ll1 and swollen for over 2 weeks, getting worse this week. Feels fatigued easily and sweaty. Coronavirus screen: Client denies travel out of the [place] in the last 14 days. At this time, the client does not indicate any symptoms associated with coronavirus-19. Ebola Screen: Patient denies travel to an Ebola-affected area in the 21 days before illness onset. Initial Sepsis Screen: Does the patient meet any 2 criteria? No. Patient's initial sepsis screen is negative. Does the patient have a suspected source of infection? No. Patient's initial sepsis screen is negative. Risk Assessment: Do you want to hurt yourself or someone else? Patient reports no desire to harm self or others. Onset of symptoms was August 05, 2023. 07:49 Method Of Arrival: Ambulatory ll1 07:49 Acuity: CARLA 3 ll1 Triage Assessment: 07:51 General: Appears uncomfortable, Behavior is calm, cooperative, appropriate for age. ll1 Pain: Complains of pain in buttocks Quality of pain is described as aching. Derm: Abscess located on buttocks is nickel sized, has no drainage, is hot to touch, is red. Historical: - Allergies: 07:48 No Known Allergies; ll1 - PMHx: 07:48 None; ll1 - PSHx: 07:48 parada to arms debrided; ll1 - Immunization history:: Adult Immunizations up to date. - Infectious Disease History:: Denies. - Social history:: Smoking status: Patient reports the use of cigarette tobacco products, smokes one-half pack cigarettes per day, Reported history of juuling and/or vaping. - Family history:: not pertinent. - Hospitalizations: : No recent hospitalization is reported. Screenin:01 [facility] ED Fall Risk Assessment (Adult) History of falling in the last 3 months, ph including since admission No falls in past 3 months (0 pts) Confusion or Disorientation No (0 pts) Intoxicated or Sedated No (0 pts) Impaired Gait No (0 pts) Mobility Assist Device Used No (0 pt) Altered Elimination No (0 pt) Score/Fall Risk Level 0 - 2 = Low Risk Oriented to surroundings, Maintained a safe environment, Hourly rounding (assess needs \T\ fall precautionary measures) done. Abuse screen: Denies threats or abuse. Denies injuries from another. Nutritional screening: No deficits noted. Tuberculosis screening: No symptoms or risk factors identified. Assessment: 08:01 General: Appears in no apparent distress. Behavior is calm, cooperative. Pain: ph Complains of pain in buttocks. Neuro: Level of Consciousness is awake, alert, obeys commands, Oriented to person, place, time, situation. Derm: Skin is pink, warm \T\ dry. Abscess located on coccyx is half dollar sized, has no drainage, is red, is raised. Vital Signs: 07:49 BP 120 / 62; Pulse 99; Resp 17; Temp 99.2; Pulse Ox 99% on R/A; Weight 104.33 kg; ll1 Height 5 ft. 11 in. ; Pain 8/10; 09:16 BP 117 / 68; Pulse 87; Resp 18; Temp 99; Pulse Ox 99% on R/A; ph 07:49 Body Mass Index 32.08 (104.33 kg, 180.34 cm) ll1 07:49 Pain Scale: Adult ll1 ED Course: 07:40 Patient arrived in ED. im 07:40 Arm band placed on Patient placed in an exam room, on a stretcher. ll1 07:44 Stephon Hightower MD is Attending Physician. rn 07:45 Liza Mcmillan RN is Primary Nurse. ph 07:51 Triage completed. ll1 08:02 Patient has correct armband on for positive identification. Bed in low position. Call ph light in reach. Side rails up X 1. Door closed. Noise minimized. 08:30 Assist provider with I \T\ D: of an abscess on pilonidal cyst Set up I\T\D tray. Performed ph by Stephon Hightower MD Wound packed. iodoform gauze, Dressing with ABD pad, tape Patient tolerated well. Patient did not have IV access during this emergency room visit. 08:46 Keegan Baxter MD is Referral Physician. rn Administered Medications: 08:30 Drug: Lidocaine Infiltration (1 %) 1 vials 20 ml Infiltration once; to bedside Volume: ph 20 ml; Route: Infiltration; 09:15 Follow up: Response: No adverse reaction ph 09:15 Drug: [place] PO 10 mg-325 mg 1 tabs PO once Route: PO; ph 09:15 Follow up: Response: No adverse reaction ph Medication: 08:02 VIS not applicable for this client. ph Outcome: 08:46 Discharge ordered by . rn 09:16 Discharged to home ambulatory, ph 09:16 Condition: good 09:16 Discharge instructions given to patient, Instructed on discharge instructions, follow up and referral plans. Demonstrated understanding of instructions, follow-up care, 09:17 Patient left the ED. ph Signatures: Stephon Hightower MD MD rn Hall, Patricia, RN RN Anne Rain RN RN ll1 Allison Vallecillo
[2023-08-21] MEDS ORDERED: HYDROCODONE/APAP 10/325 TAB ONE (08:59)
[2023-08-21 09:25] VITALS: BP 117/68; TEMP 99; O2SAT 99
== END 2023-08-21 09:17 | disposition home or self-care (01) ==
LOC: ER 07:38
PROC: 0H98XZZ Drainage of Buttock Skin, External Approach (ICD-10-PCS; principal; 2023-08-21)
DX: L05.01 Pilonidal cyst with abscess (principal)
CPT/HCPCS: 10060; 99283; J2001